=== PATIENT | female | born 1970 | race Hispanic/Latino ===

== ENCOUNTER 2022-11-12 08:24 | Outpatient (CLI) | payer OTHER ==
[2022-11-12] MEDS ORDERED: ADENOSINE 60 MG/20 ML VIAL ONE (08:55)
== END 2022-11-12 08:25 | disposition home or self-care (01) ==
LOC: NM 08:24
PROVIDERS: ATTEND Student in an Organized Health Care Education/Training Program
DX: M79.89 Other specified soft tissue disorders (principal); R07.9 Chest pain, unspecified
CPT/HCPCS: 78452; 93017; 93970; A9500; J0153